=== PATIENT | female | born 1960 | race Caucasian/White ===

== ENCOUNTER 2018-09-13 17:13 | Inpatient (IN) | payer OTHER ==
[2018-09-13] MEDS ORDERED: ACETAMINOPHEN 325 MG TAB PO (17:30)
[2018-09-13] MEDS ORDERED: NACL 0.9% 3 ML SYG IV (17:30)
[2018-09-13] MEDS ORDERED: ZOLPIDEM 5 MG TAB PO (17:30)
[2018-09-13] MEDS ORDERED: HYDROCODONE/APAP (5/325) TAB PO (17:30)
[2018-09-13] MEDS: morphine 2 MG INJ IV (18:18)
[2018-09-13] MEDS: ONDANSETRON 4 MG INJ IV (18:22)
[2018-09-13] MEDS: ALLOPURINOL 300 MG TAB PO (18:22)
[2018-09-13] MEDS: HYDROmorphONE 1 MG/ML SYG IV ×3 (19:30→23:57)
[2018-09-13] MEDS: HYDROCODONE/APAP (5/325) TAB PO (21:09)
[2018-09-13] MEDS: IMATINIB 400 MG TAB PO (21:11)
[2018-09-13 22:01] LABS: WHITE BLOOD COUNT 146.9 10^3/ul (4.8-10.8)
[2018-09-13 22:01] LABS: ABNORMAL IP MESSAGE 1; HEMATOCRIT 29.6 % (37.0-47.0); HEMOGLOBIN 9.1 g/dl (12.0-16.0); MEAN CORPUSCULAR HEMOGLOBIN 29.4 pg (29.0-33.0); MEAN CORPUSCULAR HGB CONC 30.7 g/dl (32.0-37.0); MEAN CORPUSCULAR VOLUME 95.5 fl (82.0-101.0); MEAN PLATELET VOLUME 10.2 fl (7.4-10.4); NUCLEATED RED BLOOD CELLS% 0.3 /100WBC (0.0-0.0); PLATELET COUNT 244 10^3/UL (140-415); RED CELL DISTRIBUTION WIDTH 17.8 % (11.5-14.5)
[2018-09-13 22:02] LABS: POSITIVE DIFF @See below
[2018-09-13 22:03] LABS: ADD MAN DIFF? YES
[2018-09-13 22:47] LABS: LACTATE DEHYDROGENASE 2137 IU/L (313-618)
[2018-09-13 22:49] LABS: ANISOCYTOSIS 2+ (0-0); BASOPHIL #M 2.9 10^3/ul (0.0-0.0); BASOPHILS % (M) 2 % (0-2); EOSINOPHILS % (M) 2 % (0-7); MONOCYTE #M 8.8 10^3/ul (0.3-0.9); MONOCYTES % (M) 6 % (0-11); PLATELET ESTIMATE NORMAL; POLYCHROMASIA 1+ (0-0)
[2018-09-13] MEDS ORDERED: ONDANSETRON 4 MG INJ IV (23:30)
[2018-09-14] MEDS: HYDROCODONE/APAP (5/325) TAB PO ×4 (01:58→18:32)
[2018-09-14] MEDS: HYDROmorphONE 1 MG/ML SYG IV ×11 (01:58→22:15)
[2018-09-14] MEDS: ONDANSETRON 4 MG INJ IV (04:37)
[2018-09-14 05:02] LABS: ABNORMAL IP MESSAGE 1; HEMATOCRIT 29.4 % (37.0-47.0); MEAN CORPUSCULAR HEMOGLOBIN 29.5 pg (29.0-33.0); MEAN CORPUSCULAR HGB CONC 30.6 g/dl (32.0-37.0); MEAN CORPUSCULAR VOLUME 96.4 fl (82.0-101.0); NUCLEATED RED BLOOD CELLS% 0.4 /100WBC (0.0-0.0); PLATELET COUNT 259 10^3/UL (140-415); RED BLOOD COUNT 3.05 10^6/ul (4.20-5.40)
[2018-09-14 05:16] LABS: HEMOGLOBIN A1C 5.7 % (0-5.9)
[2018-09-14 05:32] LABS: ADD MAN DIFF? YES; POSITIVE DIFF @See below
[2018-09-14 05:33] LABS: URIC ACID 8.2 mg/dl (3.1-7.9)
[2018-09-14 05:38] LABS: ALANINE AMINOTRANSFERASE 19 IU/L (13-69); ALBUMIN 4.5 g/dl (3.3-4.9); ALKALINE PHOSPHATASE 86 IU/L (42-121); ANION GAP 9 (5-13); ASPARTATE AMINO TRANSFERASE 27 IU/L (15-46); BILIRUBIN,INDIRECT 0.2 mg/dl (0-1.1); BILIRUBIN,TOTAL 0.2 mg/dl (0.2-1.3); BLOOD UREA NITROGEN 10 mg/dl (7-20); CALCIUM 9.2 mg/dl (8.4-10.2); CARBON DIOXIDE 30 mmol/L (21-31); CHLORIDE 104 mmol/L (97-110); CREATININE 0.75 mg/dl (0.44-1.00); Estimated GFR > 60 mL/min (>60); GLUCOSE 129 mg/dl (70-220); MAGNESIUM 2.1 mg/dl (1.7-2.5); PHOSPHORUS 4.8 mg/dl (2.5-4.9); POTASSIUM 4.3 mmol/L (3.5-5.1); SODIUM 143 mmol/L (135-144); TOTAL PROTEIN 7.5 g/dl (6.1-8.1)
[2018-09-14 07:28] LABS: ANISOCYTOSIS 1+ (0-0); BAND NEUTROPHILS #M 49.9 10^3/ul (0.0-0.6); BAND NEUTROPHILS % (M) 34 % (0-4); BASOPHIL #M 1.4 10^3/ul (0.0-0.0); BASOPHILS % (M) 1 % (0-2); LYMPHOCYTES #M 5.8 10^3/ul (0.8-2.9); LYMPHOCYTES % (M) 4 % (15-51); METAMYELOCYTES #M 7.3 10^3/ul (0.0-0.0); METAMYELOCYTES %M 5 % (0-0); MICROCYTOSIS 1+ (0-0); MONOCYTE #M 5.8 10^3/ul (0.3-0.9); MONOCYTES % (M) 4 % (0-11); MYELOCYTES #M 14.7 10^3/ul (0.0-0.0); MYELOCYTES % (M) 10 % (0-0); PLATELET ESTIMATE NORMAL; POLYCHROMASIA 1+ (0-0); PROMYELOCYTES #M 10.2 10^3/ul (0-0); PROMYELOCYTES % (M) 7 % (0-0); REACTIVE LYMPHOCYTES #M 1.4 10^3/ul (0.0-0.0); REACTIVE LYMPHOCYTES% (M) 1 % (0-0); SEGMENTED NEUTROPHILS (M) % 29 % (39-77); SMUDGE%M 7 % (0-0)
[2018-09-14] MEDS: ONDANSETRON INJ 8 MG in SOD CHLORIDE 0.9% 50 ML IV ×2 (09:22→17:26)
[2018-09-14] MEDS: IMATINIB 400 MG TAB PO (10:17)
[2018-09-14] MEDS: ALLOPURINOL 300 MG TAB PO (10:18)
[2018-09-14] MEDS: HYDROXYUREA 500 MG CAP PO ×2 (10:57→22:23)
[2018-09-14 11:01] LABS: BAND NEUTROPHILS #M 27.9 10^3/ul (0.0-0.6); BAND NEUTROPHILS % (M) 19 % (0-4); LYMPHOCYTES #M 7.3 10^3/ul (0.8-2.9); LYMPHOCYTES % (M) 5 % (15-51); METAMYELOCYTES #M 17.6 10^3/ul (0.0-0.0); METAMYELOCYTES %M 12 % (0-0); MICROCYTOSIS 2+ (0-0); MYELOCYTES #M 20.5 10^3/ul (0.0-0.0); MYELOCYTES % (M) 14 % (0-0); PROMYELOCYTES #M 1.4 10^3/ul (0-0); PROMYELOCYTES % (M) 1 % (0-0); REACTIVE LYMPHOCYTES #M 2.9 10^3/ul (0.0-0.0); REACTIVE LYMPHOCYTES% (M) 2 % (0-0); SEG NEUT #M 101.2 10^3/ul (1.6-7.5); SEGMENTED NEUTROPHILS (M) % 41 % (39-77); SMUDGE%M 1 % (0-0)
[2018-09-14] MEDS: METOCLOPRAMIDE 10 MG INJ IV (22:15)
[2018-09-14] MEDS: DEXTROSE 5%-0.45% NACL 1,000 ML IV (22:16)
[2018-09-15] MEDS: HYDROmorphONE 1 MG/ML SYG IV ×12 (00:15→23:45)
[2018-09-15] MEDS: ONDANSETRON INJ 8 MG in SOD CHLORIDE 0.9% 50 ML IV ×3 (00:24→15:33)
[2018-09-15] MEDS: HYDROCODONE/APAP (5/325) TAB PO ×5 (00:25→18:43)
[2018-09-15] MEDS: METOCLOPRAMIDE 10 MG INJ IV (03:57)
[2018-09-15 05:14] LABS: ABNORMAL IP MESSAGE 1; HEMATOCRIT 30.4 % (37.0-47.0); HEMOGLOBIN 9.2 g/dl (12.0-16.0); MEAN CORPUSCULAR HEMOGLOBIN 29.4 pg (29.0-33.0); MEAN CORPUSCULAR HGB CONC 30.3 g/dl (32.0-37.0); MEAN CORPUSCULAR VOLUME 97.1 fl (82.0-101.0); MEAN PLATELET VOLUME 10.7 fl (7.4-10.4); NUCLEATED RED BLOOD CELLS% 1.3 /100WBC (0.0-0.0); PLATELET COUNT 257 10^3/UL (140-415); RED BLOOD COUNT 3.13 10^6/ul (4.20-5.40); RED CELL DISTRIBUTION WIDTH 18.5 % (11.5-14.5)
[2018-09-15 05:14] LABS: WHITE BLOOD COUNT 153.4 10^3/ul (4.8-10.8)
[2018-09-15 05:19] LABS: ADD MAN DIFF? YES; POSITIVE DIFF @See below
[2018-09-15 05:41] LABS: ANION GAP 11 (5-13); BLOOD UREA NITROGEN 13 mg/dl (7-20); CARBON DIOXIDE 28 mmol/L (21-31); CHLORIDE 103 mmol/L (97-110); CREATININE 0.85 mg/dl (0.44-1.00); Estimated GFR > 60 mL/min (>60); GLUCOSE 128 mg/dl (70-220); SODIUM 142 mmol/L (135-144)
[2018-09-15] MEDS: ALLOPURINOL 300 MG TAB PO (08:44)
[2018-09-15] MEDS: HYDROXYUREA 500 MG CAP PO ×2 (08:46→21:07)
[2018-09-15] MEDS: IMATINIB 400 MG TAB PO (08:46)
[2018-09-15 09:37] LABS: BAND NEUTROPHILS #M 27.6 10^3/ul (0.0-0.6); BAND NEUTROPHILS % (M) 18 % (0-4); BASOPHIL # 3.1 10^3/ul (0.0-0.1); BLASTOCYTES #M 14.1 10^3/ul (0.0-0.0); EOSINOPHILS # 7.7 10^3/ul (0.0-0.5); EOSINOPHILS % (M) 5 % (0.0-7.0); ERYTHROBLAST% (NRBC) (M) 3 % (0-0); LYMPHOCYTES # 4.6 10^3/ul (0.8-2.9); LYMPHOCYTES #M 4.6 10^3/ul (0.8-2.9); LYMPHOCYTES % (M) 3 % (15-51); METAMYELOCYTES %M 15 % (0-0); MYELOCYTES #M 32.2 10^3/ul (0.0-0.0); MYELOCYTES % (M) 21 % (0-0); PROMYELOCYTES #M 12.2 10^3/ul (0-0); PROMYELOCYTES % (M) 8 % (0-0); SEG NEUT #M 76.1 10^3/ul (1.7-7.5); SEGMENTED NEUTROPHILS (M) % 22 % (39-77)
[2018-09-15 09:40] LABS: ANISOCYTOSIS 1+ (0-0); POLYCHROMASIA 1+ (0-0)
[2018-09-16] MEDS: HYDROmorphONE 1 MG/ML SYG IV ×7 (02:12→23:12)
[2018-09-16] MEDS: ONDANSETRON INJ 8 MG in SOD CHLORIDE 0.9% 50 ML IV (02:59)
[2018-09-16 05:24] LABS: ABNORMAL IP MESSAGE 1; HEMATOCRIT 29.1 % (37.0-47.0); HEMOGLOBIN 8.8 g/dl (12.0-16.0); MEAN CORPUSCULAR HGB CONC 30.2 g/dl (32.0-37.0); MEAN PLATELET VOLUME 10.9 fl (7.4-10.4); NUCLEATED RED BLOOD CELLS% 2.9 /100WBC (0.0-0.0); PLATELET COUNT 233 10^3/UL (140-415); RED BLOOD COUNT 3.03 10^6/ul (4.20-5.40); RED CELL DISTRIBUTION WIDTH 18.3 % (11.5-14.5)
[2018-09-16 05:27] LABS: ADD MAN DIFF? YES; POSITIVE DIFF @See below
[2018-09-16] MEDS ORDERED: ONDANSETRON INJ 8 MG in DEXTROSE 5% 50 ML IV (05:30)
[2018-09-16 07:51] LABS: ANISOCYTOSIS 2+ (0-0); BAND NEUTROPHILS #M 35.5 10^3/ul (0.0-0.6); BAND NEUTROPHILS % (M) 25 % (0-4); EOSINOPHILS % (M) 1 % (0-7); ERYTHROBLAST% (NRBC) (M) 1 % (0-0); LYMPHOCYTES #M 7.1 10^3/ul (0.8-2.9); LYMPHOCYTES % (M) 5 % (15-51); METAMYELOCYTES #M 2.8 10^3/ul (0.0-0.0); METAMYELOCYTES %M 2 % (0-0); MICROCYTOSIS 2+ (0-0); MONOCYTE #M 2.8 10^3/ul (0.3-0.9); MONOCYTES % (M) 2 % (0-11); MYELOCYTES #M 12.7 10^3/ul (0.0-0.0); MYELOCYTES % (M) 9 % (0-0); PLATELET ESTIMATE NORMAL; PLATELET MORPHOLOGY COMMENT @See below; POIKILOCYTOSIS 1+ (0-0); POLYCHROMASIA 2+ (0-0); PROMYELOCYTES #M 9.9 10^3/ul (0-0); PROMYELOCYTES % (M) 7 % (0-0); SEGMENTED NEUTROPHILS (M) % 49 % (39-77); SMUDGE%M 6 % (0-0)
[2018-09-16] MEDS: IMATINIB 400 MG TAB PO (09:14)
[2018-09-16] MEDS: HYDROCODONE/APAP (5/325) TAB PO (09:15)
[2018-09-16] MEDS: HYDROXYUREA 500 MG CAP PO ×2 (09:15→21:03)
[2018-09-16] MEDS: ALLOPURINOL 300 MG TAB PO (09:15)
[2018-09-16] MEDS: oxyCODONE (CR) 10 MG TAB [oxyCONTIN] PO ×2 (11:36→21:02)
[2018-09-16] MEDS: OXYCODONE/ACETAMINOPHEN (5/325) TAB PO ×3 (12:28→21:58)
[2018-09-17] MEDS: OXYCODONE/ACETAMINOPHEN (5/325) TAB PO ×3 (02:08→09:56)
[2018-09-17] MEDS: HYDROmorphONE 1 MG/ML SYG IV ×6 (02:58→23:00)
[2018-09-17] MEDS: ALLOPURINOL 300 MG TAB PO (08:08)
[2018-09-17] MEDS: oxyCODONE (CR) 10 MG TAB [oxyCONTIN] PO (08:12)
[2018-09-17] MEDS: HYDROXYUREA 500 MG CAP PO ×2 (08:15→21:20)
[2018-09-17] MEDS: IMATINIB 400 MG TAB PO (08:15)
[2018-09-17] MEDS: OXYCODONE/ACETAMINOPHEN (10/325) TAB PO ×3 (14:07→22:01)
[2018-09-17] MEDS: oxyCODONE (CR) 20 MG TAB [oxyCONTIN] PO (21:19)
[2018-09-17] MEDS: DOCUSATE SODIUM 100 MG CAP PO (21:21)
[2018-09-18] MEDS: OXYCODONE/ACETAMINOPHEN (10/325) TAB PO ×4 (02:32→21:30)
[2018-09-18] MEDS: HYDROmorphONE 1 MG/ML SYG IV ×2 (06:42→14:28)
[2018-09-18] MEDS: ALLOPURINOL 300 MG TAB PO (08:36)
[2018-09-18] MEDS: oxyCODONE (CR) 20 MG TAB [oxyCONTIN] PO ×2 (08:36→20:19)
[2018-09-18] MEDS: IMATINIB 400 MG TAB PO (08:38)
[2018-09-18] MEDS: HYDROXYUREA 500 MG CAP PO ×2 (08:39→20:20)
[2018-09-18] MEDS: ENOXAPARIN 40 MG/0.4 ML SYG SC (08:39)
[2018-09-18] MEDS: ONDANSETRON 4 MG INJ IV (14:57)
[2018-09-18] MEDS: DOCUSATE SODIUM 100 MG CAP PO (20:18)
[2018-09-19] MEDS: OXYCODONE/ACETAMINOPHEN (10/325) TAB PO ×3 (03:48→15:33)
[2018-09-19] MEDS: oxyCODONE (CR) 20 MG TAB [oxyCONTIN] PO ×2 (09:07→19:10)
[2018-09-19] MEDS: ALLOPURINOL 300 MG TAB PO (09:07)
[2018-09-19] MEDS: IMATINIB 400 MG TAB PO (09:09)
[2018-09-19] MEDS: HYDROXYUREA 500 MG CAP PO (09:09)
[2018-09-19] MEDS: ENOXAPARIN 40 MG/0.4 ML SYG SC (09:10)
[2018-09-19] MEDS: ONDANSETRON 4 MG INJ IV (09:13)
== END 2018-09-19 19:15 | disposition home or self-care (01) | DRG 842 ==
LOC: MS1 17:13
PROVIDERS: Internal Medicine
PROC: 3E03305 Introduction of Other Antineoplastic into Peripheral Vein, Percutaneous Approach (ICD-10-PCS; principal; 2018-09-15)
DX: C92.10 Chronic myeloid leukemia, BCR/ABL-positive, not having achieved remission (principal); R16.2 Hepatomegaly with splenomegaly, not elsewhere classified; R73.9 Hyperglycemia, unspecified; F17.200 Nicotine dependence, unspecified, uncomplicated
CPT/HCPCS: 80048; 80053; 83036; 83615; 83735; 84100; 84560; 85025; 87081